=== PATIENT | male | born 1985 | race African-American/Black ===

== ENCOUNTER 2020-02-15 07:27 | Emergency (ER) | payer OTHER ==
[~2020-02-15] VITALS: Ht 188 cm; Wt 77.1 kg
[2020-02-15 07:32] VITALS: BP 125/89
[2020-02-15] MEDS ORDERED: LOPERAMIDE 2 MG2 M1 PO (08:22)
== END 2020-02-15 08:32 | disposition home or self-care (01) ==
LOC: ER 07:27
DX: M25.461 Effusion, right knee (principal); R19.7 Diarrhea, unspecified; R05 Cough; F17.210 Nicotine dependence, cigarettes, uncomplicated